=== PATIENT | male | born 1960 | race Caucasian/White ===

== ENCOUNTER 2018-09-08 11:17 | Inpatient (IN) | payer OTHER ==
[2018-09-08] MEDS: CEFAZOLIN 2 GM/50 ML (PMX) 50 ML IVPB (06:30)
[~2018-09-08 11:17] MED LIST: BUPIVACAINE 0.5% (SDV) 30 ML, morphine SULFATE (PF) 8 MG, EPINEPHrine 0.3 MG, KETOROLAC... IRR; DIPHENHYDRAMINE 50 MG INJ; HYDROCORTISONE 100 MG INJ; LABETALOL HCL 20MG INJ; hydrALAzine 20 MG INJ
[2018-09-08] MEDS: DEXAMETHASONE 1 MG TAB PO (12:31)
[2018-09-08] MEDS: GABAPENTIN 300 MG CAP PO ×2 (12:31→21:32)
[2018-09-08] MEDS ORDERED: PROPOFOL 20 ML (14:05)
[2018-09-08] MEDS ORDERED: MIDAZOLAM 1 MG/ML 2 ML INJ (14:06)
[2018-09-08] MEDS ORDERED: CEFAZOLIN 1 GM INJ (14:06)
[2018-09-08] MEDS ORDERED: ROCURONIUM 50 MG INJ (14:06)
[2018-09-08] MEDS ORDERED: FENTAnyl 50 MCG/ML VIAL ×2 (14:06→14:08)
[2018-09-08] MEDS ORDERED: ROPIVACAINE 0.5 % 30 ML VIAL (14:06)
[2018-09-08] MEDS ORDERED: ALBUTEROL 0.083% (NEB) 2.5 MG/3 ML AMP HHN (14:30)
[2018-09-08] MEDS ORDERED: DIPHENHYDRAMINE 50 MG INJ IV ×2 (14:30→16:30)
[2018-09-08] MEDS ORDERED: LABETALOL HCL 20MG INJ IV (14:30)
[2018-09-08] MEDS ORDERED: MEPERIDINE 25 MG INJ IV (14:30)
[2018-09-08] MEDS ORDERED: ONDANSETRON 4 MG INJ IV ×2 (14:30→16:30)
[2018-09-08] MEDS ORDERED: HYDROmorphONE 1 MG/5 ML IV SYRINGE IV ×2 (14:30)
[2018-09-08] MEDS ORDERED: EPHEDrine SULFATE 50 MG/5 ML SYG IV (14:30)
[2018-09-08] MEDS ORDERED: FENTAnyl 50 MCG/ML VIAL IV ×3 (14:30)
[2018-09-08] MEDS ORDERED: OXYCODONE/ACETAMINOPHEN (5/325) TAB PO (14:30)
[2018-09-08] MEDS ORDERED: METOCLOPRAMIDE 10 MG INJ IV (14:30)
[2018-09-08] MEDS ORDERED: hydrALAzine 20 MG INJ IV (14:30)
[2018-09-08] MEDS: TRANEXAMIC ACID 1,000 MG in DEXTROSE 5% 100 ML IV (15:00)
[2018-09-08] MEDS: BUPIVACAINE 0.5%/EPI (SDV) 30 ML INJ (15:12)
[2018-09-08] MEDS: POLYMYXIN/BACITRACIN 1L IRRIG IRR (15:18)
[2018-09-08] MEDS ORDERED: SUGAMMADEX SODIUM 200 MG/2 ML VIAL IV (16:26)
[2018-09-08] MEDS ORDERED: METOCLOPRAMIDE 10 MG INJ (16:27)
[2018-09-08] MEDS ORDERED: DEXAMETHASONE 4 MG/ML 5 ML INJ (16:27)
[2018-09-08] MEDS ORDERED: KETOROLAC 30 MG INJ (16:27)
[2018-09-08] MEDS ORDERED: ONDANSETRON 4 MG INJ (16:27)
[2018-09-08] MEDS ORDERED: oxyCODONE 5 MG TAB PO ×2 (16:30)
[2018-09-08] MEDS ORDERED: MAGNESIUM HYDROXIDE 30ML CUP PO (16:30)
[2018-09-08] MEDS ORDERED: HYDROmorphONE 1 MG/ML SYG IV (16:30)
[2018-09-08] MEDS ORDERED: LOPERAMIDE 2 MG CAP PO (16:30)
[2018-09-08] MEDS ORDERED: NACL 0.9% 3 ML SYG IV (16:30)
[2018-09-08] MEDS ORDERED: TRANEXAMIC ACID 1,000 MG in SOD CHLORIDE 0.9% 100 ML IVPB (16:30)
[2018-09-08] MEDS: TRANEXAMIC ACID 1,000 MG in DEXTROSE 5% 100 ML IVPB (17:19)
[2018-09-08] MEDS: HYDROmorphONE 1 MG/5 ML IV SYRINGE IV (17:31)
[2018-09-08] MEDS ORDERED: PROVENTIL HFA 6.7GM INHALER INH (17:43)
[2018-09-08] MEDS ORDERED: ALBUTEROL HFA 8 GM INHALER (17:44)
[2018-09-08] MEDS: ACYCLOVIR 800 MG TAB PO (21:00)
[2018-09-08] MEDS: DEXAMETHASONE 2 MG TAB PO (21:32)
[2018-09-08] MEDS: ATORVASTATIN 40 MG TAB PO (21:32)
[2018-09-08] MEDS: SENNA/DOCUSATE NA (8.6MG/50MG) TAB PO (21:32)
[2018-09-08] MEDS: CYCLOBENZAPRINE 10 MG TAB PO (21:33)
[2018-09-08] MEDS: TAMSULOSIN (SR) 0.4 MG CAP PO (21:33)
[2018-09-08] MEDS: ACETAMINOPHEN 500 MG TAB PO (21:33)
[2018-09-08] MEDS: ALBUTEROL HFA 8 GM INHALER INH (21:34)
[2018-09-08] MEDS: traZODone 100 MG TAB PO (21:41)
[2018-09-08] MEDS: CEFAZOLIN 1 GM/50 ML (PMX) 50 ML IVPB (21:42)
[2018-09-08] MEDS: KETOROLAC 15 MG INJ IV (21:42)
[2018-09-09] MEDS: oxyCODONE 5 MG TAB PO ×2 (00:58→05:07)
[2018-09-09] MEDS: DEXAMETHASONE 2 MG TAB PO ×2 (02:47→09:04)
[2018-09-09] MEDS: ACETAMINOPHEN 500 MG TAB PO ×2 (05:07)
[2018-09-09] MEDS: PANTOPRAZOLE (EC) 40 MG TAB PO (05:07)
[2018-09-09] MEDS: CEFAZOLIN 1 GM/50 ML (PMX) 50 ML IVPB (05:07)
[2018-09-09] MEDS ORDERED: MOMETASONE 0.24 GM INHALER INH (09:00)
[2018-09-09] MEDS: metFORMIN 500 MG TAB PO (09:04)
[2018-09-09] MEDS: SENNA/DOCUSATE NA (8.6MG/50MG) TAB PO (09:04)
[2018-09-09] MEDS: CYCLOBENZAPRINE 10 MG TAB PO (09:04)
[2018-09-09] MEDS: GABAPENTIN 300 MG CAP PO (09:05)
[2018-09-09] MEDS: DONEPEZIL 5 MG TAB PO (09:05)
[2018-09-09] MEDS: ALBUTEROL HFA 8 GM INHALER INH (09:06)
[2018-09-09] MEDS: VENLAFAXINE (XR) 75 MG CAP PO (09:06)
[2018-09-09] MEDS: AMLODIPINE 5 MG TAB PO (09:06)
[2018-09-10] MEDS ORDERED: INFLUENZA VIRUS VACCINE 0.5 ML (DISPENSING) IM* (10:00)
== END 2018-09-09 10:36 | disposition home or self-care (01) | DRG 483 ==
LOC: REC 11:17 → MS1 19:34
PROVIDERS: Orthopaedic Surgery
PROC: 0RRJ00Z Replacement of Right Shoulder Joint with Reverse Ball and Socket Synthetic Substitute, Open Approach (ICD-10-PCS; principal; 2018-09-08 14:52)
DX: M13.811 Other specified arthritis, right shoulder (principal); M75.101 Unspecified rotator cuff tear or rupture of right shoulder, not specified as traumatic; I10 Essential (primary) hypertension; E78.5 Hyperlipidemia, unspecified
CPT/HCPCS: 73030-RT; 82962; 86999; 88304; 88311; 97161

== ENCOUNTER → 2019-01-18 | Outpatient (CLI) | payer OTHER ==
[~2019-01-18] MED LIST changes: -BUPIVACAINE 0.5% (SDV) 30 ML, morphine SULFATE (PF) 8 MG, EPINEPHrine 0.3 MG, KETOROLAC... IRR; -DIPHENHYDRAMINE 50 MG INJ; -HYDROCORTISONE 100 MG INJ; +IOHEXOL 100 ML; -LABETALOL HCL 20MG INJ; +METOPROLOL 5 MG INJ; +NITROGLYCERIN AEROSOL (4.9 GM); +SOD CHLORIDE 0.9% 100 ML; -hydrALAzine 20 MG INJ
== END | disposition home or self-care (01) ==
LOC: C/S 09:55
DX: R07.9 Chest pain, unspecified (principal)
CPT/HCPCS: 75571; 75571-59; 75574